=== PATIENT | male | born 1965 | race Caucasian/White ===

== ENCOUNTER 2017-05-27 19:36 | Emergency (ER) | payer OTHER ==
[~2017-05-27] VITALS: Ht 172.7 cm; Wt 147.6 kg
[~2017-05-27 19:36] MED LIST: ATOR10TA82 PO; CARV3.122 PO; GLC/500 PO; LIRA18IN SC; LISI-788 PO; LOSA1TAB PO
[2017-05-27 19:42] VITALS: TEMP 36.9; Ht 172.7 cm; Wt 147.6 kg
[2017-05-27] MEDS ORDERED: LPT10 PO (20:30)
[2017-05-27] MEDS ORDERED: ALBI1INJ2 SQ (20:30)
[2017-05-27] MEDS ORDERED: METF500T5 PO (20:30)
[2017-05-27] MEDS ORDERED: FURO-85 PO (20:36)
[2017-05-27] MEDS ORDERED: POTA10CA28 PO (20:36)
[2017-05-27] MEDS ORDERED: BP PILL PO (20:36)
--- NOTE | 2017-05-27 21:02 | DIAGNOSTIC IMAGING REPORT ---
R KNEE 3 VIEWS, L KNEE 3 VIEWS HISTORY: 52 years-old Male fall, abrasion, pain acute bilateral knee pain status post fall COMPARISON: None available TECHNIQUE: Frontal, lateral and sunrise views of the bilateral knees FINDINGS: RIGHT: Mild tricompartmental osteoarthritis. Small joint effusion. No acute fracture or subluxation. No intra-articular loose body. LEFT: Minimal tricompartmental degenerative changes with small joint effusion. No acute fracture or subluxation. No intra-articular loose body. IMPRESSION: No acute fracture. The above report was generated using voice recognition software. It may contain grammatical, syntax or spelling errors. Electronically signed by: Patrick Cottrell M.D. 05/27/2017 9:01 PM Dictated Date/Time: 05/27/2017 8:59 PM
--- NOTE | 2017-05-27 21:38 | EMERGENCY ROOM VISIT NOTE ---
ED Visit Note First contact with patient: 19:45 CHIEF COMPLAINT: knee pain, multiple contusions, fall HISTORY OF PRESENT ILLNESS: This 52 yo male patient presents to the emergency department approximately 30 mintues after sustaining an injury to the left elbow , bilateral knees, and head. The patient was walking into [employer] [facility], when he tripped on the curb while carrying his grandson. He states he twisted around so he would not land on top of his grandson, and instead landed on his knees, then flipped to his back and hit his head off of the concrete. The patient denies any loss of consciousness, nausea, vomiting, memory loss, confusion, visual disturbances, or other concerning symptoms. The patient states he is able to ambulate, but does have difficulty with ambulation due to the pain. He states his left elbow has a very superficial abrasion on it, but he has full range of motion and no bony pain in this area. The patient does report some swelling and bruising. There is pain in both knees on palpation, worse overlying the patella bilaterally. The patient does complain of a mild, generalized headache between his eyes which started approximately 10 minutes ago , which he describes as a dull ache. They rate the pain as achy and 8/10. No numbness or tingling. No previous injuries to this knee. No ankle, foot or hip pain. REVIEW OF SYSTEMS: A 6 system review of systems was completed with positives and pertinent negatives listed in the HPI. ALLERGIES: Sulfa MEDICATIONS: Tanzeum, atorvastatin, Coreg, Lasix, metformin, potassium PMH: Diabetes, HTN, sleep apnea, obesity, elevated hemoglobin, low testosterone SOCIAL HISTORY: The patient lives locally with family. He did recently moved to the area, and does not have an established PCP. He denies drug, alcohol, tobacco use. PHYSICAL EXAM: Vital Signs: Reviewed Nurse's notes, vital signs stable. GENERAL : This is a 52-year-old obese white male, no acute distress, but appears in pain , well-developed, well-nourished. NEURO: The patient is alert, oriented to person place and time, and coherent. Normal mini mental status exam. HEAD: Normocephalic, atraumatic. There is no tenderness on palpation of the head. EYES: Pupils are equal round and reactive to light and accommodation. EOMs are full and optic discs and fundi are normal. There is no swelling or discoloration of the tissue surrounding the eyes. EARS: External auditory canals clear without blood. NOSE: Patent without tenderness. No septal hematoma. FACE: No facial tenderness. NECK: Supple. There is no cervical spine tenderness. The patient does not have tenderness with movement of the neck. MUSCULOSKELETAL: The bilateral knees are mildly swollen. There is no ecchymosis. There is no joint effusion present. The patient is tender on palpation of bilateral patellas. There is tenderness diffusely in the right knee on palpation. There is joint line tendernes, R>L. The patella does appropriately subluxate bilaterally. Range of motion is full bilaterally, however painful. Strength of the quads and hamstrings is 5/5. Edgardo's is negative. Mary's and Anterior Drawer tests are negative. There is no discomfort or laxity with varus and valgus stressing. The foot and toes are warm and well-perfused. Dorsalis pedis pulse 2+. Sensation to pain and light touch is intact. Capillary refill less than 2 seconds. SKIN: There are multiple abrasions over the right anterior knee and left elbow. These are superficial. EMERGENCY DEPARTMENT COURSE: I examined the patient. Based on the patient's mechanism of injury and symptoms/examination at this time, I do not suspect acute intracranial hemorrhage or other traumatic head injury. I discussed this with the patient at bedside, and he was in agreement with with this. X-rays of the bilateral knees were reviewed by myself and read by radiology and reveal no acute fracture or bony abnormality. I did offer the patient a brace and/or walker or cane. The patient declines these devices. I did encourage him that if he is having difficulty ambulating, that he can olive picker a cane or walker over -the-counter at the pharmacy. Discharge instructions were reviewed. The patient was discharged home in good condition. I attest that I have personally reviewed the patient's current medication list. Patient was found to have an elevated blood pressure and was referred to their primary doctor for recheck and further treatment. DIFFERENTIAL DIAGNOSIS: Closed head injury, concussion, contusion, multiple abrasions, fall, patellar dislocation, fracture, sprain, strain, acute cranial hemorrhage, and others DIAGNOSIS: Fall, multiple contusions, bilateral knee pain Current/Historical Medications Scheduled Albiglutide (Tanzeum), 1 DOSE SQ WK Atorvastatin (Atorvastatin Calcium), 10 MG PO DAILY Carvedilol (Coreg), 3.125 MG PO BID Metformin Hcl Er (Glucophage Er), 500 MG PO DAILY [Bp Pill], 1 TAB PO DAILY Scheduled PRN Furosemide (Lasix), 1 TAB PO DAILY PRN for Potassium Chloride (Micro-K Ext Rel), 10 MEQ PO DAILY PRN for WHEN TAKES LASIX Allergies Coded Allergies: Nifedipine (Verified Allergy, Unknown, headache, 01/20/15) Sulfa Antibiotics (Verified Allergy, Unknown, hallucinate, 01/20/15) Uncoded Allergies: DARVOCET (Allergy, Unknown, hallucinate and hives, 01/20/15) Vital Signs Date Time Temp Pulse Resp B/P (MAP) Pulse Ox O2 Delivery O2 Flow Rate FiO2 05/27/17 21:44 76 20 180/88 96 05/27/17 19:42 36.9 71 20 187/96 96 Room Air Departure Information Impression Primary Impression: Fall Additional Impressions: Contusion of multiple sites Knee pain, bilateral Dispostion Home / Self-Care Condition GOOD Referrals No Doctor, Assigned (PCP) Patient Instructions ED Contusion Lower Ext, ED Mechanical Fall, [facility] Additional Instructions You have been treated in the Emergency Department for a Closed Head Injury, fall , multiple contusions. X-rays of the knees did not show any significant abnormalities or serious injuries. You may use the Tramadol you have at home for pain as directed. This is a narcotic medication. You cannot drive or consume alcohol while on this medicine. This medicine should only be used for pain that cannot be controlled with [id number] pain medicines. For pain control, you can use the following [id number]-[id number] medicines (if >12 yo): Ibuprofen(Motrin, Advil) may be used for fever or pain. Use 600mg every six hours as needed. Take with food. Avoid using more than 2400mg in a 24 hour period. Do not use 2400mg per day for more than three consecutive days without physician direction. Prolonged inappropriate use can lead to stomach upset or ulcers. (AND/OR) Acetaminophen(Tylenol) may be used for fever or pain. Use 1000mg every six hours as needed. Avoid using more than 3000mg in a 24 hour period. You should relax in a quiet, dark place for the rest of the day. Avoid any possible triggers including: cigarette smoke, caffeine, nicotine, chocolate, wine, beer, loud noises or music, or bright lights. Ice can be applied to the area of pain for the first 3 days to help decrease pain and inflammation. Ice massages can be performed by freezing water in a paper cup, peeling back the cup to expose the ice and then massaging over the affected area. You may consider a cane or walker to help with ambulation if necessary. You should schedule a follow-up appointment in 2-3 days with your Primary Care Provider for further evaluation and treatment of your Headache and knee pain. Return to the Emergency Department if your current symptoms worsen despite treatment course outlined above, or if you develop any of the following symptoms : intractable pain despite aforementioned treatment course, visual disturbances , loss of vision, unilateral weakness or facial drooping, slurring of speech, loss of coordination, or loss of consciousness. Problem Qualifiers Primary Impression: Fall Encounter type: initial encounter Qualified Codes: W19.XXXA - Unspecified fall, initial encounter Additional Impressions: Knee pain, bilateral Chronicity: acute Qualified Codes: M25.561 - Pain in right knee; M25.562 - Pain in left knee
[2017-05-27 21:44] VITALS: BP 180/88; PULSE 76; O2SAT 96
== END 2017-05-27 21:45 | disposition home or self-care (01) ==
LOC: C.EDB 19:36 → C.EDD 21:45
DX: S50.02XA Contusion of left elbow, initial encounter (principal); S50.312A Abrasion of left elbow, initial encounter; S80.211A Abrasion, right knee, initial encounter; W01.0XXA Fall on same level from slipping, tripping and stumbling without subsequent striking against object, initial encounter; Y92.511 Restaurant or cafe as the place of occurrence of the external cause; M25.561 Pain in right knee; M25.562 Pain in left knee; E11.9 Type 2 diabetes mellitus without complications; I10 Essential (primary) hypertension; G47.30 Sleep apnea, unspecified; E66.9 Obesity, unspecified; Z79.84 Long term (current) use of oral hypoglycemic drugs